=== PATIENT | male | born 1945 | race African-American/Black ===

== ENCOUNTER 2020-07-01 11:11 | Emergency (ER) | payer OTHER ==
[~2020-07-01] VITALS: Ht 182.9 cm; Wt 109.0 kg
[2020-07-01] MEDS ORDERED: ACETAMINOPHEN 325MG TABLET PO ONE (11:45)
[2020-07-01 12:41] LABS: HEMATOCRIT. 30.9 % (42.0-52.0); HEMOGLOBIN. 10.4 g/dL (14.0-18.0); MEAN CORPUSCULAR HEMOGLOBIN 31.3 pg (28.0-32.0); MEAN CORPUSCULAR VOLUME 93.3 fL (80.0-94.0); MEAN PLATELET VOLUME 10.7 fl (7.4-10.4); PLATELET 134 x1000/uL (130-400); RED BLOOD CELL COUNT 3.32 mill/uL (4.7-6.1)
[2020-07-01 12:47] LABS: CHLORIDE 106 mEq/L (98-107)
[2020-07-01 13:09] LABS: PLATELET ESTIMATE NORMAL
[2020-07-01] MEDS ORDERED: FUROSEMIDE 20MG TABLET PO ONE (15:15)
[2020-07-01] MEDS ORDERED: CLONIDINE 0.1MG TABLET PO ONE (18:15)
[2020-07-01 19:32] VITALS: BP 165/81
[2020-07-01] MEDS ORDERED: AZITHROMYCIN 500 MG in DEXT 5% WATER 250 ML IV ONE (21:15)
== END 2020-07-01 19:35 | disposition short-term general hospital (02) ==
LOC: ER 11:29
DX: M25.552 Pain in left hip (principal); N17.9 Acute kidney failure, unspecified; D64.9 Anemia, unspecified; E11.65 Type 2 diabetes mellitus with hyperglycemia; R77.8 Other specified abnormalities of plasma proteins; I50.9 Heart failure, unspecified; J44.1 Chronic obstructive pulmonary disease with (acute) exacerbation; Z88.6 Allergy status to analgesic agent
CPT/HCPCS: 36415; 71045; 73502; 80053; 82962; 83880; 84484; 85025; 93005; 99285; J0456; J7060